=== PATIENT | female | born 1945 | race Caucasian/White ===

== ENCOUNTER 2024-12-23 06:19 | Day surgery (SDC) | payer MEDICARE ==
[2024-12-22 14:29] LABS: BASOPHILS % (AUTO) 0.8 % (0-1); EOSINOPHILS # (AUTO) 0.1 X10'3 (0-0.9); EOSINOPHILS % (AUTO) 1.7 % (0-6); HEMATOCRIT 40.3 % (35.0-45.0); LYMPHOCYTES # (AUTO) 1.6 X10'3 (1.1-4.8); LYMPHOCYTES % (AUTO) 34.2 % (21-51); MEAN CORPUSCULAR HEMOGLOBIN 31.6 PG (27.0-31.0); MEAN CORPUSCULAR HGB CONC 32.3 g/dL (33.0-36.5); MEAN CORPUSCULAR VOLUME 97.7 FL (78-98); MEAN PLATELET VOLUME 8.1 FL (7.4-10.4); MONOCYTES # (AUTO) 0.3 X10'3 (0-0.9); MONOCYTES % (AUTO) 6.9 % (2-12); NEUTROPHILS # (AUTO) 2.6 X10'3 (1.8-7.7); NEUTROPHILS % (AUTO) 56.4 % (42-75); PLATELET COUNT 248 X10'3 (140-440); RED BLOOD COUNT 4.13 X10'6 (4.20-5.60); RED CELL DISTRIBUTION WIDTH 18.5 % (11.5-14.5); WHITE BLOOD COUNT 4.6 X10'3 (4.5-11.0)
[2024-12-22 14:37] LABS: ALBUMIN 3.4 G/DL (3.4-5.0); ANION GAP 9 (8-16); BLOOD UREA NITROGEN 17 MG/DL (7-18); BUN/CREATININE RATIO 15.5 (10.0-20.0); CALCIUM 9.7 MG/DL (8.5-10.1); CHLORIDE 104 MMOL/L (99-107); GLUCOSE 150 MG/DL (70-104); INR 1.1 INR; PROTHROMBIN TIME 11.7 SECONDS (9.0-12.0); SODIUM 142 MMOL/L (135-145); eGFR 48 ML/MIN
[2024-12-22 14:53] LABS: ANISOCYTOSIS 2+; PLATELET ESTIMATE NORMAL
[2024-12-22 14:55] LABS: LARGE PLATELETS FEW
[~2024-12-23] VITALS: Ht 165.1 cm; Wt 105.1 kg
[2024-12-23] VITALS (11 sets, daily range): BP systolic 104–142; BP diastolic 41–69; PULSE 49–75; RESP 9–21; TEMP 97.4; O2SAT 97–100
[~2024-12-23 06:19] MED LIST: ACET-1008 PO; ADV50250 IH; BUPR300T7 PO; DIPH-423 PO; DULR RC; ENOX40SY7 SUBCUT; GABA-338 PO; INSU100V36 SQ; IPRA3AMP9 NEB; LACT1CAP61 PO; LANTUS SQ; LOP25T PO; LOSA1TAB39 PO; MAG355OR PO; MAGN-49 PO; METR-159 PO; NORCO10T PO; OXYB15TA PO; POTA-207 PO; SILV50CR31 TP; ZOF4I IV
[2024-12-23] MEDS ORDERED: LORazepam 0.5 MG tablet PO ONE (06:40)
[2024-12-23] MEDS ORDERED: atropine 0.1mg/ml 10ml syringe IV ONE (06:40)
[2024-12-23] MEDS ORDERED: diphenhydrAMINE 25mg capsule PO ONE (06:40)
[2024-12-23] MEDS ORDERED: HYDR12.55 PO (07:13)
[2024-12-23] MEDS ORDERED: SEMA2PEN SQ (07:13)
[2024-12-23] MEDS ORDERED: APIX2.5T PO (07:13)
[2024-12-23] MEDS ORDERED: LACT1CAP65 PO (07:13)
[2024-12-23] MEDS ORDERED: EMPA10TA PO (07:13)
[2024-12-23] MEDS ORDERED: ROSU40TA89 PO (07:13)
[2024-12-23] MEDS ORDERED: INSU100V9 SQ (07:13)
[2024-12-23] MEDS ORDERED: PRED5DRO23 OP (07:13)
[2024-12-23] MEDS ORDERED: FLEC50TA28 PO (07:13)
[2024-12-23] MEDS ORDERED: ANAS1TAB24 PO (07:13)
[2024-12-23] MEDS ORDERED: METF-900 PO (07:13)
[2024-12-23] MEDS ORDERED: OMEG100037 PO (07:13)
[2024-12-23] MEDS ORDERED: IRBE300T26 PO (07:13)
[2024-12-23] MEDS ORDERED: ASCO100031 PO (07:13)
[2024-12-23] MEDS ORDERED: CHOL50004 PO (07:13)
[2024-12-23] MEDS ORDERED: ACET-2119 PO (07:13)
[2024-12-23] MEDS ORDERED: GABA300C PO (07:13)
[2024-12-23] MEDS: enoxaparin 100mg/ml syringe SUBCUT STA (07:25)
[2024-12-23] MEDS: normal saline 1000ml 1,000 ML IV SCH (07:26)
[2024-12-23] MEDS: morphine 10mg/ml inj. IV ONE (08:50)
[2024-12-23] MEDS: MIDAZolam 1mg/ml 10ml vial IV ONE (08:50)
[2024-12-23] MEDS: amiodarone 150mg/dext, iso-os 100 ML IV ONE (08:50)
== END 2024-12-23 09:45 | disposition home or self-care (01) ==
LOC: SSTAY O 06:19
PROVIDERS: ATTEND Internal Medicine Cardiovascular Disease
DX: I48.0 Paroxysmal atrial fibrillation (principal); I10 Essential (primary) hypertension; E78.5 Hyperlipidemia, unspecified; E11.9 Type 2 diabetes mellitus without complications; G47.30 Sleep apnea, unspecified; I25.10 Atherosclerotic heart disease of native coronary artery without angina pectoris; E66.9 Obesity, unspecified; Z98.890 Other specified postprocedural states; Z83.3 Family history of diabetes mellitus; I27.20 Pulmonary hypertension, unspecified; Z79.899 Other long term (current) drug therapy; Z68.38 Body mass index [BMI] 38.0-38.9, adult; Z88.8 Allergy status to other drugs, medicaments and biological substances
CPT/HCPCS: 36415; 80048; 82948; 85025; 85610; 92960; 93005; J0282; J1650; J2250; J2270; J7030; 85008; J2274

== ENCOUNTER 2025-02-02 10:35 | Day surgery (SDC) | payer MEDICARE ==
[2025-02-01 14:20] LABS: BASOPHILS % (AUTO) 0.5 % (0-1); EOSINOPHILS # (AUTO) 0.1 X10'3 (0-0.9); EOSINOPHILS % (AUTO) 1.7 % (0-6); HEMATOCRIT 40.3 % (35.0-45.0); HEMOGLOBIN 12.9 g/dl (12.0-16.0); LYMPHOCYTES # (AUTO) 1.4 X10'3 (1.1-4.8); MEAN CORPUSCULAR HEMOGLOBIN 31.4 PG (27.0-31.0); MEAN PLATELET VOLUME 7.6 FL (7.4-10.4); MONOCYTES # (AUTO) 0.4 X10'3 (0-0.9); MONOCYTES % (AUTO) 8.7 % (2-12); NEUTROPHILS # (AUTO) 2.8 X10'3 (1.8-7.7); NEUTROPHILS % (AUTO) 60.1 % (42-75); PLATELET COUNT 243 X10'3 (140-440); RED BLOOD COUNT 4.11 X10'6 (4.20-5.60); RED CELL DISTRIBUTION WIDTH 14.5 % (11.5-14.5); WHITE BLOOD COUNT 4.7 X10'3 (4.5-11.0)
[2025-02-01 14:29] LABS: ALBUMIN 3.3 G/DL (3.4-5.0); ANION GAP 11 (8-16); BLOOD UREA NITROGEN 23 MG/DL (7-18); BUN/CREATININE RATIO 19.2 (10.0-20.0); CHLORIDE 101 MMOL/L (99-107); GLUCOSE 119 MG/DL (70-104); SODIUM 139 MMOL/L (135-145); TOTAL CARBON DIOXIDE 27.2 MMOL/L (24-32); eGFR 43 ML/MIN
[2025-02-01 14:32] LABS: APTT 29 SECONDS (22-32); PROTHROMBIN TIME 10.4 SECONDS (9.0-12.0)
[2025-02-02] VITALS (11 sets, daily range): BP systolic 107–155; BP diastolic 52–75; PULSE 60–78; RESP 14–16; TEMP 98; O2SAT 16–98
[~2025-02-02] VITALS: Ht 165.1 cm; Wt 100.6 kg
[~2025-02-02 10:35] MED LIST changes: -ACET-1008 PO; +ACET-2119 PO; -ADV50250 IH; +ANAS1TAB24 PO; +APIX2.5T PO; +ASCO100031 PO; +BUPR-559 PO; -BUPR300T7 PO; +CHOL50004 PO; -DIPH-423 PO; -DULR RC; +EMPA10TA PO; -ENOX40SY7 SUBCUT; +FLEC50TA28 PO; -GABA-338 PO; +GABA300C PO; +HYDR12.55 PO; -INSU100V36 SQ; +INSU100V9 SQ; -IPRA3AMP9 NEB; +IRBE300T26 PO; -LACT1CAP61 PO; +LACT1CAP65 PO; -LANTUS SQ; -LOSA1TAB39 PO; -MAG355OR PO; -MAGN-49 PO; +METF-900 PO; -METR-159 PO; -NORCO10T PO; +OMEG100037 PO; -POTA-207 PO; +PRED5DRO23 OP; +ROSU40TA89 PO; +SEMA2PEN SQ; -SILV50CR31 TP; -ZOF4I IV
[2025-02-02] MEDS ORDERED: LORazepam 0.5 MG tablet PO PRN (11:00)
[2025-02-02] MEDS ORDERED: diphenhydrAMINE 25mg capsule PO PRN (11:00)
[2025-02-02] MEDS ORDERED: normal saline 1,000 ML IV SCH ×2 (11:00→12:00)
[2025-02-02] MEDS ORDERED: ceFAZolin 2gm in dextrose, iso 50 ML IV ONE (11:00)
[2025-02-02] MEDS ORDERED: FLEC100T PO (11:42)
[2025-02-02] MEDS ORDERED: APIX5TAB3 PO (11:42)
[2025-02-02] MEDS ORDERED: EMPA25TA PO (11:46)
[2025-02-02] MEDS ORDERED: IRON150C13 (11:46)
[2025-02-02] MEDS ORDERED: OMEP20CA16 PO (11:46)
[2025-02-02] MEDS ORDERED: iohexol 350 MG/ML 50ML vial IV ONE ×2 (11:51→13:58)
[2025-02-02] MEDS ORDERED: heparin 1,000unit/ml 10ml vial 10 ML ONE (11:51)
[2025-02-02] MEDS ORDERED: LIDOcaine 1% (10mg/ml) 2ml vial ONE (11:51)
[2025-02-02] MEDS ORDERED: verapamil 2.5 mg/ml inj IV ONE (11:51)
[2025-02-02] MEDS ORDERED: iohexol 350MG/ML 100ml bottle IV ONE (11:51)
[2025-02-02] MEDS ORDERED: nitroGLYCERIN 500mcg/5mL D5W 5 ML IV ONE (11:52)
[2025-02-02] MEDS ORDERED: midazolam 1 mg/ML 2ml injection ONE ×2 (11:52→13:57)
[2025-02-02] MEDS ORDERED: fentaNYL/PF 50MCG/1 ML 2ML syringe ONE ×2 (11:52→13:57)
[2025-02-02] MEDS ORDERED: acetylcysteine 200 MG/ml 4ml vial PO PRN (11:56)
[2025-02-02] MEDS ORDERED: sodium bicarbonate 1meq/ml syr 150 ML in dextrose 5%-water 1,000 ML IV ONE (12:00)
[2025-02-02] MEDS ORDERED: diphenhydrAMINE 50 mg/ml inj ONE (12:36)
[2025-02-02 13:31] LABS: ISTAT HGB ART 12.6 g/dl (12.0-16.0); ISTAT Hct ART 37 %PCV (35-45); ISTAT O2 SATURATION ARTERIAL 96 % (95-98); ISTAT SOURCE ART
[2025-02-02] MEDS ORDERED: LIDOcaine 1% W/epiNEPHrine 1:100,000 20ml vial ONE (13:57)
[2025-02-02] MEDS ORDERED: ceFAZolin 1000mg inj ONE (13:58)
[2025-02-02 14:01] LABS: ISTAT HGB MIX 12.2 g/dl (12.0-16.0); ISTAT Hct MIX 36 %PCV (35-45); ISTAT O2 SATURATION MIX VENOUS 69 % (60-80); ISTAT SOURCE VEN
[2025-02-02] MEDS ORDERED: ondansetron/PF 4mg/2ml inj IV PRN (16:20)
[2025-02-02] MEDS ORDERED: HYDROcodone/acetaminophen 5mg/325mg tablet PO PRN (16:20)
[2025-02-02] MEDS ORDERED: proCHLORperazine 10 MG/2 ml inj IV PRN (16:20)
[2025-02-02] MEDS ORDERED: HYDROcodone/acetaminophen 10/325mg tab PO PRN (16:20)
[2025-02-02] MEDS: vancomycin/NS 1 GM ADD-VANTAGE 250 ML IV ONE (17:51)
== END 2025-02-02 20:20 | disposition home or self-care (01) ==
LOC: SSTAY O 10:35
PROVIDERS: ATTEND Internal Medicine Cardiovascular Disease
DX: I49.5 Sick sinus syndrome (principal); I10 Essential (primary) hypertension; E78.5 Hyperlipidemia, unspecified; E11.9 Type 2 diabetes mellitus without complications; Z79.01 Long term (current) use of anticoagulants; Z79.899 Other long term (current) drug therapy; Z98.890 Other specified postprocedural states; I48.0 Paroxysmal atrial fibrillation; I36.1 Nonrheumatic tricuspid (valve) insufficiency; I27.20 Pulmonary hypertension, unspecified; G47.30 Sleep apnea, unspecified; Z90.49 Acquired absence of other specified parts of digestive tract; Z88.8 Allergy status to other drugs, medicaments and biological substances
CPT/HCPCS: 33208; 36415; 71046; 80048; 82803; 85014; 85025; 85610; 85730; 93005; 93460; 99152; 99153; A4565; A6258; A6402; C1725; C1751; C1769; C1785; C1894; C1898; J0690; J1200; J1644; J2003; J2250; J3010; J3370; J3490; J7030; Q9967; Z7610; 76937; A6449